=== PATIENT | male | born 1965 | race Hispanic/Latino ===

== ENCOUNTER 2018-09-02 20:54 | Emergency (ER) | payer SELFPAY ==
[2018-09-02 21:20] VITALS: BP 196/101
[2018-09-03] MEDS ORDERED: TYLENOL ONE (00:22)
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
--- NOTE | 2018-09-03 03:13 | Cat Scan Report ---
FINAL REPORT EXAM: CT Head w/o contrast CLINICAL INDICATIONS: TRAUMA, FACIAL PAIN/SWELLING FINDINGS: Unenhanced CT of the brain was performed and demonstrates no acute intracranial hemorrhage, extra-axi al fluid collection, midline shift or mass effect. The ventricles and basal cisterns are not effaced . There are old bilateral basal ganglia lacunar infarcts. The mastoid air cells and middle ears appear clear. There is no evidence of acute sinusitis. There is a right posterior parietal soft tissue scalp soft tissue defect. There appears to be a frac ture of the outer table of cortex of the calvarium subjacent to the scalpsoft tissue defect, axial im ages 51-52. The inner table of the calvarium appears intact, and the cranial vault is therefore inta ct. IMPRESSION: NO ACUTE INTRACRANIAL HEMORRHAGE RIGHT POSTERIOR-SUPERIOR PARIETAL SCALP SOFT TISSUE DEFECT. THERE APPEARS TO BE A DEFECT OF THE OUTE R TABLE OF THE BONY CALVARIUM AT THIS LEVEL
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
== END 2018-09-03 04:33 | disposition home or self-care (01) ==
LOC: ED 20:54
DX: S02.40CA Maxillary fracture, right side, initial encounter for closed fracture (principal); S05.12XA Contusion of eyeball and orbital tissues, left eye, initial encounter; S01.00XA Unspecified open wound of scalp, initial encounter; E11.9 Type 2 diabetes mellitus without complications; Y08.89XA Assault by other specified means, initial encounter; Y93.89 Activity, other specified; Y92.89 Other specified places as the place of occurrence of the external cause; Y99.8 Other external cause status
CPT/HCPCS: 70450; 70486